=== PATIENT | female | born 1940 | race Caucasian/White ===

== ENCOUNTER 2020-11-08 12:28 | Emergency (ER) | payer MEDICARE, BC ==
--- NOTE | 2020-11-08 14:11 | CT ---
[id number] CT/CT Head WO IV EXAM: CT Head WO IV CLINICAL DATA: FALL, STRUCK HEAD. COMPARISON STUDY: None FINDINGS: No intracranial hemorrhage, extra-axial fluid collection, mass, or acute ischemia. Generalized parenchymal atrophy with scattered areas of nonspecific white matter disease, commonly seen as sequela of chronic microvascular ischemia. Right posterior scalp hematoma without underlying calvarial fracture. Paranasal sinuses and mastoid air cells are clear. IMPRESSION: No acute intracranial findings. Rom Mejía DO 11/08/20 [id number] Thank you for allowing us to participate in the care of your patient.
--- NOTE | 2020-11-08 14:13 | CT ---
[id number] CT/CT Cervical Spine WO IV Exam: CT Cervical Spine WO IV CLINICAL DATA: FALL COMPARISON: None. FINDINGS: No fracture or subluxation is seen. The C1-C2 articulation is unremarkable. The prevertebral soft tissues are within normal limits. Multilevel degenerative changes of the cervical spine including loss of disc space height, endplate osteophytosis and facet arthropathy. Findings are most pronounced at C5-C6 and C6-C7. IMPRESSION: NO ACUTE FRACTURE OR SUBLUXATION. Rom Mejía DO 11/08/20 [phone] Thank you for allowing us to participate in the care of your patient.
--- NOTE | 2020-11-08 14:55 | CR ---
[id number] RAD/RAD Pelvis 1-2V Exam: RAD Pelvis 1-2V Clinical Data: TRAUMA COMPARISON: NO PREVIOUS SIMILAR EXAM IS AVAILABLE FINDINGS: No fracture or dislocation is seen Degenerative changes are identified IMPRESSION: NO FRACTURE OR DISLOCATION Salinas Samuel MD 11/08/20 [phone] Thank you for allowing us to participate in the care of your patient.
--- NOTE | 2020-11-08 14:55 | CR ---
[id number] RAD/RAD Lumbar Spine 2-3V EXAM: AP AND LATERAL LUMBAR SPINE. INDICATION: Trauma COMPARISON: No previous similar exam is available for comparison. FINDINGS: There are degenerative changes There is minimal anterior positioning of L4 on L5. IMPRESSION: NO FRACTURE OR SUBLUXATION. Salinas Samuel MD 11/08/20 [id number] Thank you for allowing us to participate in the care of your patient.
--- NOTE | 2020-11-20 02:58 | EDM.PDOC ---
ED HPI GENERAL MEDICAL PROBLEM - General Chief Complaint: General Stated Complaint: FALL Time Seen by Provider: 11/08/20 12:30 Source of Information: Reports: Patient History Limitations: Reports: No Limitations - History of Present Illness INITIAL COMMENTS - FREE TEXT/NARRATIVE: Pt. presents to ER with complaints of fall and head injury. She states that she was walking on the sidewalk, and her shoe became stuck and she fell backward, striking back of head. She denies any LOC and recalls the entire event. No nausea or vomiting. Denies any vision loss or change. Pt. complains of pelvic/buttock pain, neck pain, and she has a large hematoma to back of head. Denies any chest pain, shortness of breath, lightheadedness, or palpitations prior to the fall. She was able to ambulate and bear weight. Onset Date: 11/08/20 Location: Reports: Head Quality: Reports: Ache Associated Symptoms: Reports: Headaches. Denies: Nausea/Vomiting Generalized Pain Score (Numeric/FACES): 5 - Related Data Allergies Allergy/AdvReac Type Severity Reaction Status Date / Time amoxicillin [Amoxicillin] Allergy Unknown Unknown Verified 11/08/20 17:01 aspirin Allergy Unknown unknown Verified 11/08/20 17:01 cephalexin monohydrate Allergy Unknown unknown Verified 11/08/20 17:01 [From Keflex] ibuprofen [From Motrin IB] Allergy Unknown unknown Verified 11/08/20 17:01 indomethacin [From Indocin] Allergy Unknown unknown Verified 11/08/20 17:01 indomethacin sodium Allergy Unknown unknown Verified 11/08/20 17:01 [From Indocin] latex Allergy Unknown unknown Verified 11/08/20 17:01 meprobamate [From Equanil] Allergy Unknown unknown Verified 11/08/20 17:01 morphine Allergy Unknown unknown Verified 11/08/20 17:01 phenobarbital Allergy Unknown unknown Verified 11/08/20 17:01 piroxicam [From Feldene] Allergy Unknown unknown Verified 11/08/20 17:01 celecoxib [From Celebrex] Allergy Dizziness Verified 11/08/20 17:01 chlorhexidine Allergy Rash Verified 11/08/20 17:01 codeine Allergy Rash Verified 11/08/20 17:01 orange juice [Sibley Juice] Allergy Wheezing Verified 11/08/20 17:01 pravastatin sodium Allergy Hives Verified 11/08/20 17:01 [From Pravachol] adhesive AdvReac Unknown unknown Verified 11/08/20 17:01 Shrimp Flavor Allergy Unknown Feels like Uncoded 11/08/20 17:01 she is choking flu virus vaccine Allergy Other Uncoded 11/08/20 17:01 Home Meds: Home Meds Acetaminophen [Tylenol] 325 - 650 mg PO Q4H 12/23/19 [History] Albuterol/Ipratropium [Combivent Respimat] 1 puff IH QID 12/23/19 [History] Aspirin [Aspirin EC] 81 mg PO DAILY 12/23/19 [History] Calcium Carbonate/Vitamin D3 [Calcium Carbonate/Vitamin D 600 MG-200 Unit] 1 tab PO ASDIRECTED 12/23/19 [History] Cholecalciferol (Vitamin D3) [Vitamin D3] 2,000 unit PO DAILY 12/23/19 [History] Cyanocobalamin (Vitamin B-12) [B-12] 1,000 mcg PO DAILY 12/23/19 [History] Diclofenac Sodium [Voltaren 1% Gel] 1 applic TOP BID 12/23/19 [History] Magnesium Oxide 400 mg PO DAILY 12/23/19 [History] Meclizine [Antivert] 12.5 mg PO BID 12/23/19 [History] Metoprolol Succinate [Toprol XL] 12.5 mg PO DAILY 12/23/19 [History] Non-Formulary Medication [NF Drug] 1 tab PO DAILY 12/23/19 [History] Omeprazole Magnesium [Prilosec Otc] 20 mg PO DAILY 12/23/19 [History] Sertraline [Zoloft] 100 mg PO DAILY 12/23/19 [History] Vitamin B Complex [B Complex] 1 each PO DAILY 12/23/19 [History] allopurinoL [Zyloprim] 100 mg PO DAILY 12/23/19 [History] amLODIPine [Norvasc] 5 mg PO DAILY 12/23/19 [History] busPIRone [Buspar] 10 mg PO BID 12/23/19 [History] Past Medical History HEENT History: Reports: Other (See Below) Other HEENT History: tongue lesions Cardiovascular History: Reports: High Cholesterol, Hypertension, Other (See Below) Other Cardiovascular History: SVT Respiratory History: Reports: Asthma Gastrointestinal History: Reports: GERD Genitourinary History: Reports: Other (See Below) Other Genitourinary History: lichen sclerosus et atrophicus of the vulva Musculoskeletal History: Reports: Gout, Osteoarthritis Neurological History: Reports: Neuropathy, Peripheral, Other (See Below) Other Neuro History: States she has memory problems and is seeing an MD in [place] for this. Psychiatric History: Reports: Anxiety, Dementia, Depression Endocrine/Metabolic History: Reports: Obesity/BMI 30+ Hematologic History: Reports: B12 Deficiency Dermatologic History: Reports: Other (See Below) Other Dermatologic History: contact dermatitis Social & Family History - Family History Neurological: Reports: Migraines, MS Other Neurological Family History: MS= sister. migraines= sister Psychiatric: Reports: Anxiety Other Psychiatric Family History: sister= axiety Endocrine/Metabolic: Reports: Diabetes, type II Other Endocrine/Metabolic Family History: diabetic= sister - Tobacco Use Tobacco Use Status *Q: Never Tobacco User - Caffeine Use Caffeine Use: Reports: Soda - Recreational Drug Use Recreational Drug Use: No - Living Situation & Occupation Living situation: Reports: (59 years with 2 children), with Spouse ([place]) Occupation: Retired (Farm ) ED ROS GENERAL - Review of Systems Review Of Systems: See Below Constitutional: Reports: No Symptoms HEENT: Reports: Other (head pain) Respiratory: Reports: No Symptoms Cardiovascular: Reports: No Symptoms Endocrine: Reports: No Symptoms GI/Abdominal: Reports: No Symptoms : Reports: No Symptoms Musculoskeletal: Reports: Neck Pain, Other (buttock/pelvic pain) Skin: Reports: No Symptoms Neurological: Reports: No Symptoms Psychiatric: Reports: No Symptoms Hematologic/Lymphatic: Reports: No Symptoms ED EXAM, GENERAL - Physical Exam Exam: See Below Exam Limited By: No Limitations General Appearance: Alert, WD/WN, No Apparent Distress Eye Exam: Bilateral Eye: EOMI, Normal Fundi, Normal Inspection, PERRL Ears: Normal External Exam, Normal Canal, Hearing Grossly Normal, Normal TMs Ear Exam: Bilateral Ear: Auricle Normal, Canal Normal, TM normal Throat/Mouth: Normal Inspection, Normal Lips, Normal Teeth, Normal Oropharynx, Normal Voice, No Airway Compromise Head: Other (hematoma to occiput of head) Neck: Normal Inspection, Supple, Non-Tender, Tender Lateral, Tender Midline Respiratory/Chest: No Respiratory Distress, Lungs Clear, Normal Breath Sounds, No Accessory Muscle Use, Chest Non-Tender Cardiovascular: Normal Peripheral Pulses, Regular Rate, Rhythm, No Murmur Peripheral Pulses: 4+: Radial (L) GI/Abdominal: Soft, Non-Tender, No Distention, No Mass (Female) Exam: Deferred Rectal (Female) Exam: Deferred Back Exam: Normal Inspection, Full Range of Motion Extremities: Normal Inspection, Normal Range of Motion, Non-Tender, No Pedal Edema, Normal Capillary Refill Neurological: Alert, Oriented, CN II-XII Intact, Normal Cognition, Normal Reflexes, No Motor/Sensory Deficits Psychiatric: Normal Affect, Normal Mood Skin Exam: Warm, Dry, Intact, Normal Color Lymphatic: No Adenopathy #1 Interpretation Rhythm: NSR [place]: Normal P-Wave: Present QRS: Normal ST-T: Normal QT: Normal Course - Vital Signs Last Recorded V/S: Last Vital Signs Temp 36.2 C 11/08/20 12:30 Pulse 74 11/08/20 12:30 Resp 17 11/08/20 12:30 BP 116/68 11/08/20 12:30 Pulse Ox 98 11/08/20 12:30 - Radiology Interpretation Free Text/Narrative:: CT brain, c spine are negative. pelvic radiographs are negative. Departure - Departure Time of Disposition: 14:00 Disposition: Home, Self-Care 01 Clinical Impression: Closed head injury, Scalp contusion, Coccyx pain - Discharge Information Instructions: Facial or Scalp Contusion, [id number], Contusion, [id number] Referrals: Francisca Pitts DO [Primary Care Provider] - Forms: ED Department Discharge Additional Instructions: Ice painful areas for 10-15 min every hour. Tylenol as needed for discomfort. Follow-up in clinic in 7-10 days if not gradually improving. Sepsis Event Note (ED) - Evaluation Sepsis Screening Result: No Definite Risk - Assessment/Plan Plan: Return if nausea, vomiting, confusion, problems with speech or ambulation. Ice painful areas for 10-15 min every hour. Tylenol as needed for discomfort. Follow-up in clinic in 7-10 days if not gradually improving.
== END 2020-11-08 15:24 | disposition home or self-care (01) ==
LOC: VM.ED 12:28
DX: S00.03XA Contusion of scalp, initial encounter (principal); M53.3 Sacrococcygeal disorders, not elsewhere classified; I10 Essential (primary) hypertension; J45.909 Unspecified asthma, uncomplicated; K21.9 Gastro-esophageal reflux disease without esophagitis; M10.9 Gout, unspecified; F03.90 Unspecified dementia, unspecified severity, without behavioral disturbance, psychotic disturbance, mood disturbance, and anxiety; E66.9 Obesity, unspecified; Z68.39 Body mass index [BMI] 39.0-39.9, adult; Z88.0 Allergy status to penicillin; Z88.8 Allergy status to other drugs, medicaments and biological substances; Z88.1 Allergy status to other antibiotic agents; Z88.6 Allergy status to analgesic agent; Z91.040 Latex allergy status; Z88.5 Allergy status to narcotic agent; Z91.018 Allergy to other foods; Z91.048 Other nonmedicinal substance allergy status; Z88.7 Allergy status to serum and vaccine; Z79.82 Long term (current) use of aspirin; Z79.899 Other long term (current) drug therapy; W18.09XA Striking against other object with subsequent fall, initial encounter; Y93.01 Activity, walking, marching and hiking; Y92.480 Sidewalk as the place of occurrence of the external cause
CPT/HCPCS: 70450; 72100; 72125; 72170; 93005; 93010; 99284; 99284-25